=== PATIENT | male | born 1965 | race Caucasian/White ===

== ENCOUNTER 2024-09-15 13:40 | Inpatient (IN) | payer OTHER, SELFPAY ==
[2024-09-15] VITALS (14 sets, daily range): BP systolic 115–149; BP diastolic 66–84; BMI 26.4
--- NOTE | 2024-09-15 10:47 | ED.GENMED ---
History of Present Illness
<Marion Curry CONDUIT MECHANIC - Last Filed: 09/15/24 17:34>
General
Chief Complaint: Back Pain
Source: patient and spouse
Exam Limitations: none
Time Seen by Provider: 09/15/24 10:08
Nursing documentation reviewed up to this point in time: agreed with
History of Present Illness
History of Present Illness:
59-year-old male with history of RLE DVT and PE, has IVC filter 7 years ago, developed low back pain 6 days ago, 4 days ago the back pain was a little worse but the main symptom became significant burning in both inner thigh areas, went to urgent
care and told it was a pinched nerve given Toradol and Flexeril which has not helped at all. At rest he has no pain, as soon as he bears weight he gets severe 'searing 'pains in the thighs and has to walk with a shuffle due to the pain.
Denies loss of bowel or bladder control. Denies weakness in the legs. Took Advil 400 mg 30 minutes ago and thinks it helped a little.
No recollection of overuse or injury
He did start walking in a new area with hills and was walking 3 to 4 miles but it has been a week since he has done any walking.
Denies fever/chills, n/v/d/c. Denies CP, SOB.
Past History
<Marion Curry CONDUIT MECHANIC - Last Filed: 09/15/24 17:34>
Past History
ED Past Medical History: Other (DVT, PE, IVC filter)
ED Past Surgical History: Tonsilectomy and Other (IVC filter)
Social History
Tobacco: Non-smoker
Alcohol: Occasional
Drug: None
Personal:
Living: with family
Employment: Employed
Review of Systems
<Marion Curry CONDUIT MECHANIC - Last Filed: 09/15/24 17:34>
Review of Systems
Allergies reviewed?: Yes
All Other Systems: ROS reviewed and negative except as documented in HPI and ROS
Constitutional: Denies fever, fatigue or chills
Respiratory: Denies trouble breathing
Cardiac: Denies chest pain
ABD/GI: Denies abdominal pain, nausea, vomiting, diarrhea or anorexia
: Denies dysuria, frequency, incontinence or difficulty voiding
Musculoskeletal: Reports back pain (low back pain has improved, now more burning pain in thighs) and other ('searing pains' both thighs anterior and medially much worse with weight bearing); Denies neck pain
Skin: Reports other (Legs look 'more red and mottled' per and .)
Neurological: Denies weakness or numbness
Phy Exam
<Marion Curry CONDUIT MECHANIC - Last Filed: 09/15/24 17:34>
Physical Exam
Physical Exam:
GENERAL: No acute distress. A&Ox3.
CONSTITUTIONAL: Afebrile.
EYES: clear, conjunctivae normal
ENMT: moist mucus membranes
RESPIRATORY: Regular respirations, nonlabored, lungs clear.
CARDIOVASCULAR: Regular rate and rhythm, no murmurs, no rubs. Normal femoral pulses, difficult to palpate pedal pulses, Doppler used for easily audible bilateral pedal and PT pulses.
GI: Soft, nontender, normal BS
MUSCULOSKELETAL: No edema. Well perfused.
SKIN: Warm, dry, pink. LE's are slightly mottled and reddish purple.
PSYCH: Normal mood and affect. Well kept, interactive and appropriate
NEUROLOGIC: Awake, alert and oriented. No focal neurological deficits. Equal patellar reflexes. Strength 5/5 throughout. Sensation to touch equal LEs. SLR with some difficulty to 45 degrees only due to pain (points to medial aspect of thighs).
Course
<Marion Curry, CONDUIT MECHANIC - Last Filed: 09/15/24 17:34>
Orders/Labs/Results
Orders:
Orders
09/15/24 11:00
CPK Isoenzyme Urgent
CRP [C-Reactive Protein] Urgent
Complete Blood Count/With Diff Urgent
Comprehensive Metabolic Panel Urgent
Sed Rate [Erythrocyte Sed Rate] Urgent
TSH Urgent
Comment: ADD ON
09/15/24 12:44
NEUROLOGY CONSULT Urgent
Consulting Provider: Arthur Greenberg
Was physician already notified: Yes
Reason for consult: low back pain with searing pains both thighs
09/15/24 12:59
Admit/Transfer Patient As Directed
Co-Sign Provider:
Level of Care: Inpatient admission
Assign to:: Telemetry
Physician / Group: Ja Coleman
Diagnosis: Severe lower extremity and back pain
Reason for Telemetry: Other
Other Reason for Telemetry: History of DVT
Date to Stop Telemetry: 09/17/24
Time to Stop Telemetry: 11:00
Reason for Hospitalization: Severe lower back and lower extremity pain
Expected length of stay greater than two midnights?: Yes
ELOS- Estimated Length of Stay in days: 3
I certify the patient meets the requirements for IP care: Yes
09/15/24 13:00
Code Status As Directed
Resuscitation Status: Full Code
09/15/24 13:08
PRN Pain Medication Management As Directed
May give lesser potent ordered pain med per pt: Yes
preference::
Protocol:: Medication orders for pain may be administered in a
manner that supports deferring to patient preference
when the pt is:
- Requesting an ordered lesser potent pain medication.
Least to most potent pain medications are defined
as: acetaminophen < NSAID < tramadol < opioids
(morphine, oxycodone, hydromorphone).
- Requesting a lesser dose of the same medication IF
ORDERED.
- Requesting a less intrusive route of administration
if both routes are prescribed by the provider (PO <
IV).
09/15/24 13:11
US Legs, Bilateral [US Periph Venous LOWER Ext Ned] Urgent
Comment:
Reason For Exam: Leg pain with hx DVT/ PE
09/17/24 11:00
DC Protocol for Telemetry ONCE
Abnormal Lab Results
09/15/24
11:00
WBC 14.4 H 10^3/uL
(4.8-10.8)
RBC 3.87 L 10^6/uL
(4.70-6.10)
Hgb 12.4 L g/dL
(13.0-18.0)
Hct 36.6 L %
(39.0-52.0)
MCV 94.6 H fL
(80.0-94.0)
MCH 32.0 H pg
(27.0-31.0)
Abs Immat Gran (auto) 0.1 H 10^3/uL
(0-0.05)
Absolute Neuts (auto) 12.1 H 10^3/uL
(1.4-6.5)
Absolute Lymphs (auto) 0.7 L 10^3/uL
(1.2-3.4)
Absolute Monos (auto) 1.3 H 10^3/uL
(0.1-0.6)
Immature Gran % 0.8 H %
(0-0.5)
Neutrophils % 84.6 H %
(42.2-75.2)
Lymphocytes % 5.0 L %
(20.5-51.1)
ESR 26 H mm/hour
(0-20)
Sodium 132 L mmol/L
(135-145)
Chloride 95 L mmol/L
(98-107)
Glucose 134 H mg/dl
(70-99)
Total Creatine Kinase 32 L U/L
(55-170)
C-Reactive Protein > 270.00 H mg/L
(0.0-10.00)
09/15/24 11:00
09/15/24 11:00
Vital Signs
Initial and Last Documented VS:
Initial Vital Signs
Temp Pulse Resp BP Pulse Ox
99.0 F 117 16 118/84 98
09/15/24 09:19 09/15/24 09:19 09/15/24 09:19 09/15/24 09:19 09/15/24 09:19
Last Documented Vital Signs
Temp Pulse Resp BP Pulse Ox
99.0 F 85 14 140/75 99
09/15/24 09:19 09/15/24 17:00 09/15/24 17:00 09/15/24 17:00 09/15/24 17:00
Installation Coordinator consulted with Physician
Installation Coordinator consulted with physician?: Yes
Name of Physician Consulted: Dr. Pinto
<Charlie Pinto MD - Last Filed: 09/15/24 16:01>
Orders/Labs/Results
Orders:
Orders
09/15/24 11:00
CPK Isoenzyme Urgent
CRP [C-Reactive Protein] Urgent
Complete Blood Count/With Diff Urgent
Comprehensive Metabolic Panel Urgent
Sed Rate [Erythrocyte Sed Rate] Urgent
TSH Urgent
Comment: ADD ON
09/15/24 12:44
NEUROLOGY CONSULT Urgent
Consulting Provider: Arthur Greenberg
Was physician already notified: Yes
Reason for consult: low back pain with searing pains both thighs
09/15/24 12:59
Admit/Transfer Patient As Directed
Co-Sign Provider:
Level of Care: Inpatient admission
Assign to:: Telemetry
Physician / Group: Ja Coleman
Diagnosis: Severe lower extremity and back pain
Reason for Telemetry: Other
Other Reason for Telemetry: History of DVT
Date to Stop Telemetry: 09/17/24
Time to Stop Telemetry: 11:00
Reason for Hospitalization: Severe lower back and lower extremity pain
Expected length of stay greater than two midnights?: Yes
ELOS- Estimated Length of Stay in days: 3
I certify the patient meets the requirements for IP care: Yes
09/15/24 13:00
Code Status As Directed
Resuscitation Status: Full Code
09/15/24 13:08
PRN Pain Medication Management As Directed
May give lesser potent ordered pain med per pt: Yes
preference::
Protocol:: Medication orders for pain may be administered in a
manner that supports deferring to patient preference
when the pt is:
- Requesting an ordered lesser potent pain medication.
Least to most potent pain medications are defined
as: acetaminophen < NSAID < tramadol < opioids
(morphine, oxycodone, hydromorphone).
- Requesting a lesser dose of the same medication IF
ORDERED.
- Requesting a less intrusive route of administration
if both routes are prescribed by the provider (PO <
IV).
09/15/24 13:11
US Legs, Bilateral [US Periph Venous LOWER Ext Ned] Urgent
Comment:
Reason For Exam: Leg pain with hx DVT/ PE
09/17/24 11:00
DC Protocol for Telemetry ONCE
Abnormal Lab Results
09/15/24
11:00
WBC 14.4 H 10^3/uL
(4.8-10.8)
RBC 3.87 L 10^6/uL
(4.70-6.10)
Hgb 12.4 L g/dL
(13.0-18.0)
Hct 36.6 L %
(39.0-52.0)
MCV 94.6 H fL
(80.0-94.0)
MCH 32.0 H pg
(27.0-31.0)
Abs Immat Gran (auto) 0.1 H 10^3/uL
(0-0.05)
Absolute Neuts (auto) 12.1 H 10^3/uL
(1.4-6.5)
Absolute Lymphs (auto) 0.7 L 10^3/uL
(1.2-3.4)
Absolute Monos (auto) 1.3 H 10^3/uL
(0.1-0.6)
Immature Gran % 0.8 H %
(0-0.5)
Neutrophils % 84.6 H %
(42.2-75.2)
Lymphocytes % 5.0 L %
(20.5-51.1)
ESR 26 H mm/hour
(0-20)
Sodium 132 L mmol/L
(135-145)
Chloride 95 L mmol/L
(98-107)
Glucose 134 H mg/dl
(70-99)
Total Creatine Kinase 32 L U/L
(55-170)
C-Reactive Protein > 270.00 H mg/L
(0.0-10.00)
09/15/24 11:00
09/15/24 11:00
Vital Signs
Initial and Last Documented VS:
Initial Vital Signs
Temp Pulse Resp BP Pulse Ox
99.0 F 117 16 118/84 98
09/15/24 09:19 09/15/24 09:19 09/15/24 09:19 09/15/24 09:19 09/15/24 09:19
Last Documented Vital Signs
Temp Pulse Resp BP Pulse Ox
99.0 F 85 14 140/75 99
09/15/24 09:19 09/15/24 17:00 09/15/24 17:00 09/15/24 17:00 09/15/24 17:00
<Marion Curry CONDUIT MECHANIC - Last Filed: 09/15/24 17:34>
MDM/Problems Addressed
Differential Diagnosis Includes:
nerve impingement, sciatica, rhabdomyolysis, discitis, cauda equina
MDM/Problems Addressed:
59-year-old male with history of RLE DVT and PE, has IVC filter 7 years ago, developed low back pain 6 days ago, 4 days ago the back pain was a little worse but the main symptom became significant burning in both inner thigh areas, went to urgent
care and told it was a pinched nerve given Toradol and Flexeril which has not helped at all. At rest he has no pain, as soon as he bears weight he gets severe 'searing 'pains in the thighs and has to walk with a shuffle due to the pain.
Denies loss of bowel or bladder control. Denies weakness in the legs. Took Advil 400 mg 30 minutes ago and thinks it helped a little.
No recollection of overuse or injury
He did start walking in a new area with hills and was walking 3 to 4 miles but it has been a week since he has done any walking.
Denies fever/chills, n/v/d/c. Denies CP, SOB.
Afebrile, NAD
CBC /wbc 14.4 w shift
CMP: No clinically significant abnormality
Sed rate 26 not significant
12:30 p.m.
CRP elevated at 270.[address] Dr[address] Pinto who agrees with admission
Hospitalist notified of admission, Neurology consult in.
Pt is Full Code
<Marion Curry CONDUIT MECHANIC - Last Filed: 09/15/24 17:34>
*Critical Care Note
Total Time (30-74mins, 75-104mins- exclusive of procedures): Not Applicable
ED Attending Note
<Marion Curry CONDUIT MECHANIC - Last Filed: 09/15/24 17:34>
-
Portions of this chart may have been created with voice recognition software.� Occasional wrong word or��sound alike� substitutions may have occurred due to the inherent limitations of voice recognition software.
<Charlie Pinto MD - Last Filed: 09/15/24 16:01>
ED Attending Note
Patient seen and examined by attending physician: Yes
I performed the substantive portion of visit, reviewed & personally made and approve the management plan that is documented in note by myself or JOE.: Yes
ED Attending Note:
I have seen and evaluated the patient with a [id number] encounter. I have spoken to the [CONDUIT MECHANIC] and involved in the medical history, the physical exam, medical decision making.
Evaluation and management service: agree unless noted differently below.
Results interpretation: agree unless noted differently below.
59-year-old man with history of prior DVT/PE presenting to the emergency department back pain. Patient states that 4 days ago he developed low back pain that spread to both his inner thighs. He is unable to explain the pain but denies any numbness
or tingling. He did go to an urgent care and they gave him Flexeril which did not really help. He states that since then the pain has worsened. He is still having some mild back pain. He does note some mild saddle anesthesia. No urinary
incontinence or retention. No spinal injections. No history of IV drug use.
GENERAL: in no acute distress
HEENT: normocephalic, extraocular movements intact, moist oral mucosa
NECK: normal inspection
RESPIRATORY: no respiratory distress, clear to auscultation bilaterally
CARDIOVASCULAR: regular rate and rhythm
ABDOMEN/: soft, non-distended, non-tender to palpation, no rebound or guarding
NEUROLOGIC: alert and oriented x 3, cranial nerves II-XII intact, right upper extremity strength 5/5, left upper extremity strength 5/5, right lower extremity strength 4/5, left lower extremity strength 4/5, normal sensation to light touch, normal
[id number] and [id number], gait not tested formally
SKIN: warm
59-year-old man presenting to the emergency department with back pain that radiates to both his inner thighs with mild saddle anesthesia. Vitals are unremarkable and exam does does have some weakness but states that this secondary to pain. No
sensory deficits. Unclear etiology of patient's pain. He does have elevated CRP as well as CBC. He does not have any risk factors for osteomyelitis or discitis. Considered aortic pathology though patient with strong distal pulses. Could be
component of spinal cord stenosis. There is no true weakness which is reassuring. Patient would benefit from admission for MRI given the nature of patient's pain and findings. Discussed with hospitalist who excepted patient to their service. He
is a full code.
Discharge Plan
Departure
Patient Disposition: Admit
Date of Disposition: 09/15/24
Time of Disposition: 12:38
Admit to: Med/Surg
Presentation/result/management discussed w/ accepting MD/DO: Hospitalist
Condition: Fair
Discharge Problem:
Bilateral leg pain, Bilateral thigh pain
Interventions
Interventions:
*Risk Screen - Suicide Last Done: 09/15/24 09:19
*General Assessment Last Done: 09/15/24 11:20
*Neglect/Abuse Screening Last Done: 09/15/24 09:19
*ED- Fall Risk Assessment Last Done: 09/15/24 16:40
*ED COVID-19 Vaccine History Last Done: 09/15/24 11:20
ED-Musculoskeletal Assessment Last Done: 09/15/24 13:00
[2024-09-15 11:22] LABS: % Basophils 0.2 % (0-2); % Eosinophils 0.6 % (0-6); % Immature Granulocytes 0.8 % (0-0.5); % Monocytes 8.8 % (1.7-9.3); % Neutrophils 84.6 % (42.2-75.2); Absolute Eosinophils 0.1 10^3/uL (0-0.7); Absolute Immature Granulocytes 0.1 10^3/uL (0-0.05); Absolute Lymphocytes 0.7 10^3/uL (1.2-3.4); Absolute Monocytes 1.3 10^3/uL (0.1-0.6); Absolute Neutrophils 12.1 10^3/uL (1.4-6.5); Hematocrit 36.6 % (39.0-52.0); Hemoglobin 12.4 g/dL (13.0-18.0); Mean Corp Hgb Conc. 33.9 g/dL (33.0-37.0); Mean Corpuscular Volume 94.6 fL (80.0-94.0); Mean Platelet Volume 10.4 fL (7.4-10.4); Nucleated Red Blood Cells % 0 % (-); Platelet Count 221 10^3/uL (130-400); Red Blood Cell Count 3.87 10^6/uL (4.70-6.10); Red Cell Dist. Width 12.8 % (11.5-14.5); White Blood Cell Count 14.4 10^3/uL (4.8-10.8)
[2024-09-15 11:31] LABS: ALT (SGPT) 15 U/L (0-50); AST (SGOT) 22 U/L (17-59); Alkaline Phosphatase 80 U/L (38-126); Blood Urea Nitrogen 19 mg/dl (9-20); Calcium 9.4 mg/dl (8.4-10.2); Carbon Dioxide 26 mmol/L (22-30); Chloride 95 mmol/L (98-107); Estimated Creatinine Clearance 75 ml/min; Glucose 134 mg/dl (70-99); Potassium 4.6 mmol/L (3.5-5.1); Sodium 132 mmol/L (135-145); Total Bilirubin 1.2 mg/dl (0.2-1.3); Total Protein 6.6 g/dl (6.3-8.2); eGFR > 60.00
[2024-09-15 11:39] LABS: Erythrocyte Sed Rate 26 mm/hour (0-20)
[2024-09-15 11:55] LABS: Total CK 32 U/L (55-170)
[2024-09-15 12:19] LABS: C-Reactive Protein > 270.00 mg/L (0.0-10.00)
[2024-09-15 14:54] LABS: Hematocrit 34.2 % (39.0-52.0); Hemoglobin 11.5 g/dL (13.0-18.0); Mean Corp Hgb Conc. 33.6 g/dL (33.0-37.0); Mean Corpuscular Hgb 31.9 pg (27.0-31.0); Mean Corpuscular Volume 94.7 fL (80.0-94.0); Mean Platelet Volume 10.2 fL (7.4-10.4); Platelet Count 222 10^3/uL (130-400); Red Blood Cell Count 3.61 10^6/uL (4.70-6.10); Red Cell Dist. Width 12.8 % (11.5-14.5); White Blood Cell Count 13.3 10^3/uL (4.8-10.8)
--- NOTE | 2024-09-15 15:03 | CON.VAS ---
Addendum entered and electronically signed by Eliel Cristobal III, MD 09/15/24 18:48:
This patient was seen and examined in collaboration with VALENTÍN Cox. I agree with the history and physical exam as well as the assessment and plan. I have the following additions:
Prior VTE and 2015
IVC filter placed at that time and never removed
Patient reports that he was not treated with systemic anticoagulation at all for venous thromboembolism
Has had approximately 1 week of symptoms in the lower extremities that has progressed.
Discoloration
Inability to bear weight today
Leg heaviness and swelling
Venous duplex demonstrates extensive bilateral lower extremity DVT
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
On physical exam he is well-appearing
Nonlabored breathing
Lower extremities are warm
Bilateral edema and purple discoloration
Thigh and calf compartments are soft
Palpable pedal pulses
My recommendation is for catheter directed pharmacologic thrombolysis. Technical aspects of this procedure were discussed with him in detail. The benefits and rationale for this approach were discussed with him in detail. Operative risks were
discussed with him in detail including but not limited to life-threatening bleeding, vascular access injury, pulmonary embolism, inability to successfully clear thrombus, need for additional procedures. We also discussed that ideally he should have
the IVC filter removed at some point but the goal for today is to reestablish patency of his IVC, bilateral iliac venous system and bilateral lower extremity deep veins.
Denies recent surgery
Denies recent stroke
No known cancer
No bleeding abnormalities
No history of upper or lower GI bleeding
He expressed a clear understanding of our conversation and agrees to proceed with initiation of thrombolysis as detailed above
Signed:
Eliel Cristobal III, MD
[facility]
[phone] (ritk)
Original Note:
Medical History
-
History of Present Illness:
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 Patient presents to the ER today with complaints of low back pain, bilateral inner thigh burning, bilateral lower extremity
swelling and inability to ambulate due to pain in the legs. Back pain began 6 days ago and worsened about 4 days ago with involvement of the inner thigh 'burning'. Patient presents today due to inability to ambulate because of the pain. Denies
recent injury and states he has increased the miles he walks per day recently but has not exercised in the past week due to the pain. Denies anticoagulation medications. Only other history is a tonsillectomy. Denies history of clotting disorder,
blood disorders or family history. Denies any recent surgeries.
Past Medical History
Past Medical History: Other (DVT, PE 2014 with IVC filter)
Past Surgical History: Other (IVC filter)
Social History
Tobacco: Non-Smoker
Alcohol: Occasional
Drug: None
Personal:
Living: With Family
Employment: Employed
Family History
Family History: Reviewed & Not Pertinent
Allergies / Home Medications
Allergy/AdvReac Type Severity Reaction Status Date / Time
No Known Allergies Allergy Verified 09/15/24 09:23
�Medication �Instructions �Recorded �Confirmed �Type
acetaminophen 500 mg tablet 1,000 mg PO Q4HPRN PRN mild pain 09/15/24 09/15/24 History
cyclobenzaprine 10 mg tablet 10 mg PO TID 09/15/24 09/15/24 History
ketorolac 60 mg/2 mL intramuscular 60 mg IM ONCE 09/15/24 09/15/24 History
solution
Review of Systems
-
History Source: Patient
All other systems: Negative unless noted
Constitutional: Reports No Symptoms
EENT: Reports No Symptoms
Respiratory: Reports No Symptoms
Cardiac: Reports No Symptoms
Vascular: Denies Leg Pain / Claudication
Musculoskeletal: Reports Muscle Pain and Edema
Skin: Reports Other (Slightly reddened in the thighs)
Physical Exam
Vital Signs
Temp Pulse Resp BP Pulse Ox
99.0 F 117 16 115/77 100
09/15/24 09:19 09/15/24 09:19 09/15/24 09:19 09/15/24 14:46 09/15/24 14:47
Lab Results
09/15/24 14:46
09/15/24 11:00
Physical Exam
General: No Apparent Distress
HEENT: Normocephalic and Atraumatic
Respiratory: Non Labored Respirations
Cardiac: Negative JVD
GI: Soft and Non Tender
Musculoskeletal: No Clubbing, No Cyanosis and Edema (Bilateral lower extremities)
Skin: Warm and Other (Mild erythema bilateral lower extremities)
Neuro: Awake, Alert and Oriented
Psych: Calm
Pulses: Bilateral Dorsalis Pedis: +2
Assessment / Plan
-
59-year-old male with bilateral lower extremity DVTs by ultrasound
Past medical history of right lower extremity DVT and bilateral PEs with IVC filter placed
Plan:
-Heparin drip
-CT venogram
-Will discuss plan with patient once scan complete
Data Reviewed
-
Ultrasound: Discussed with Patient
Labs: Labs Reviewed by me
[2024-09-15 15:05] LABS: APTT 29.3 Sec (23.4-35.0)
[2024-09-15] MEDS: HEPARIN 6900 UNITS IV (15:12)
[2024-09-15] MEDS: HEPARIN 25000 UNITS/250 ML IV (15:13)
[2024-09-15 16:25] LABS: TSH 2.58 uIU/ml (0.47-4.68)
--- NOTE | 2024-09-15 16:32 | HPS.HSE ---
Addendum entered and electronically signed by Ja Coleman MD 09/15/24 20:45:
Attending Addendum-
I performed a history and physical exam of the patient and discussed his management with the resident. I reviewed the resident's note and agree with the documented findings and plan of care CC/HPI- came to ED s/p swelling LE, back pain, and
inability to walk x 1 week. h/o prior extensive DVT/PE. Patient Denies CP SOB hemoptysis fevers chills. Full 12 point ROS reviewed and negative except as documented Exam- vitals reviewed in EMR GEN-NAd heart RRR lungs clear abd soft LE b/l thigh
swelling redness warmth distal pulses intact Neuro AAO x 3
Plan:
# B/L Extensive DVT
- stat b/l US ordered-Extensive lower extremity deep vein thrombus with acute clot extending from the bilateral iliac veins through the posterior tibial veins. Additionally there is thrombus within the bilateral great saphenous veins.
- h/o DVT/PE with IVC filter placement in 2014
- c/s vasc surg
- check CT venogram
- DC neuro c/s ordered by ED
- start heparin gtt
- likely for thrombolysis today
- NPO
- will need eventual genetic workup and hemeonc f/u as OP
# H/O ETOH abuse
- start MSAS
# Leukocytosis
- likely reactive cont to trend
# Hyponatremia
- hypovolemic
- start IVF
- repeat BMP in am
Code- Full
DVT-heparin gtt
ACP
Patient consented to discuss, was alone, time spent explanation of advance directives, changes in health status, patient�s health care wishes if the patient becomes unable to make health decisions, goals of care, code status, and prognosis- 16
minutes
Time spent coordinating care, review of plan of care with resident, personally reviewed previous records in EMR, med rec, labs, radiology, d/w nursing, consultants total time documented is exclusive of any additional time listed that was spent in
advance care planning discussion -�80 minutes
Original Note:
Family Physician
-
Family Physician: * NONE
Chief Complaint
-
Bilateral lower extremity redness, swelling and back pain
History of Present Illness
59-year-old male with past medical history of DVT, PE with IVC placement 7 years ago, gout presented to the ED with bilateral lower extremity swelling and back pain. His started with back pain last Wednesday after sleeping on an uncomfortable
mattress. It progressively got worse and he later developed bilateral upper thigh pain which he described as burning. He is went to an urgent care on Wednesday and they stated it was likely a pinched nerve and provided Toradol and cyclobenzaprine
which did not help. At rest, he has a 3/10 level of pain, but when he moves it can be 10/10. Of note, pt had previous DVT -> PE with right heart strain requiring thrombolysis and IVC placement in 2014. He stated he stopped taking Eliquis shortly
after leaving the hospital. Further genetic work up was not done. Prior to DVT he twisted his ankle playing soccer, went to bed, and the next morning did not feel right and went to hospital with subsequent findings. He has not family hx of clots.
Today, he denies numbness and tingling in his upper thighs and describes the pain more so as tight and swollen. The pain is so severe that it impedes his walking. Laying down and Tylenol help. He denies numbness, tinging, urinary or bowel
incontinence, chest pain, heart palpitations, shortness of breath, weakness in upper or lower extremities outside of movement disturbed by pain blurry vision, lightheadedness, recent fever or muscle aches. He denies any recent trauma or strenuous
activity prior to back pain starting.
In ED, satting 100% on room air, tachy HR, BP stable, Na 132, WBC 14.4. He was provided Tylenol and neurology was consulted. We added an urgent bilateral lower extremity US, EKG, BMP and troponins.
Medical History
Past Medical History
Past Medical History: Reports Other
Additional Past Medical History:
PE
DVT
IVC placement
Gout
Past Surgical History: Reports Tonsilectomy
Social History
Tobacco: Non-smoker
Alcohol: Daily (3 beers daily)
Drug: None
Personal: Partner
Employment: Employed
Family History
Family History: Other (Father and brother Parkinson's)
Allergies / Home Medications
Allergies reflects when Allergies were last updated in [facility].
Home Medications with original date entered in [facility]
Allergy/Medication List:
Allergies
Allergy/AdvReac Type Severity Reaction Status Date / Time
No Known Allergies Allergy Verified 09/15/24 09:23
Home Medications
acetaminophen 500 mg tablet 1,000 mg PO Q4HPRN PRN mild pain 09/15/24
cyclobenzaprine 10 mg tablet 10 mg PO TID 09/15/24
ketorolac 60 mg/2 mL intramuscular solution 60 mg IM ONCE 09/15/24
Review of Systems
-
History Source: Patient
Constitutional: Reports No Symptoms
EENT: Reports No Symptoms
Respiratory: Reports No Symptoms
Cardiac: Reports No Symptoms
Abdomen/GI: Reports No Symptoms
: Reports No Symptoms
Musculoskeletal: Reports Other (Bilateral thigh swelling, warmth, redness, pain/burning sensation with movement. Lower back pain)
Skin: Reports Other (Increased redness and swelling of upper thighs )
Neurological: Reports No Symptoms
Psych: Reports Calm
Physical Exam
Vital Signs
Vital Signs
Temp Pulse Resp BP Pulse Ox
99.0 F 117 16 115/77 100
09/15/24 09:19 09/15/24 09:19 09/15/24 09:19 09/15/24 14:46 09/15/24 14:47
Physical Exam
General: Comfortable
HEENT: NormoCephalic
Respiratory: Clear
Cardiac: S1/S2 and Regular Rhythm
GI: Soft, Non Distended, Normal Bowel Sounds and Tender (Slight tenderness with deep palpation in RLQ and LLQ close to inguinal canal)
Musculoskeletal: Other (Bilateral lower extremity swelling, thighs bilaterally swollen, warm, tender to palpation of inner thighs, peripheral pulses intact)
Skin: Other (mottled bilateral lower extremity rash, thighs bilaterally erythematous, warm)
Neuro: AO x 3, No Motor Deficits, Nonfocal/grossly intact, Cranial Nerves Intact, No Sensory Deficits and DTR's Intact & Symmetrical; No Slurred Speech, Facial Droop or Tremors
Psych: Calm
Laboratory Results
-
09/15/24 14:46
09/15/24 11:00
Laboratory Results
APTT 29.3 Sec (23.4-35.0) 09/15/24 14:46
Total Bilirubin 1.2 mg/dl (0.2-1.3) 09/15/24 11:00
AST 22 U/L (17-59) 09/15/24 11:00
ALT 15 U/L (0-50) 09/15/24 11:00
Alkaline Phosphatase 80 U/L (38-126) 09/15/24 11:00
Impression/Plan
-
IMPRESSION:
59-year-old male with past medical history of PE and DVT requiring thrombolysis and IVC placement due to right heart strain 7 years ago presents to ED with bilateral lower extremity erythema swelling and back pain. Bilateral lower extremity
ultrasound revealed extensive bilateral DVT extending from the iliacs to posterior tibial veins. Patient started on heparin drip and vascular consulted.
PLAN:
Extensive bilateral lower extremity DVT
-Admit to tele
-Heparin ggt
-NPO
-Vascular consult
-EKG, troponin and BMP pending
-Vascular checks
-t/c hemeonc consult as original dvt 7 years ago appears relatively unprovoked
-Tylenol for pain
Leukocytosis
-No complaints consistent with infx
-Likely reactive
-Monitor CBC
Hyponatremia likely hypovolemic
-Maintenence fluids as NPO
-Monitor
Alcohol use disorder
-3 beers per day average
-MSAS protocol
Macrocytic anemia
-Likely secondary to chronic alcohol use
-B12 and folate pending
DVT on heparin ggt
NPO
Full code
[2024-09-15 17:33] LABS: NT-proBNP 78.7 pg/ml; Troponin I < 0.012 ng/ml
[2024-09-15] MEDS: DILAUDID 0.25 MG IV (17:56)
--- NOTE | 2024-09-15 18:48 | W.SUR.PREOP ---
Pre-Operative Surgical Note
-
I have examined this patient prior to the performance of the scheduled procedure.
The patient's condition is unchanged from the time of the current History and
Physical and the patient is able to undergo the scheduled procedure.
--- NOTE | 2024-09-15 20:29 | OR.RPT ---
Operative Report
Operative Report
Date of Operation: 09/15/2024
Pre Op Diagnosis:
1. Thrombosed inferior vena cava
2. Bilateral iliofemoral DVT
3. Extensive bilateral lower extremity DVT
4. Presence of IVC filter
Post Op Diagnosis:
1. Thrombosed inferior vena cava
2. Bilateral iliofemoral DVT
3. Extensive bilateral lower extremity DVT
4. Presence of IVC filter
Procedure:
1. Initiation of pharmacologic venous thrombolysis, BILATERAL lower extremity
2. Venography BILATERAL lower extremity
3. Venography, inferior vena cava
4. Introduce wire/catheter to inferior vena cava from BILATERAL popliteal vein access
5. Ultrasound-guided percutaneous access popliteal veins BILATERAL
Surgeon: Eliel Cristobal III, MD
Anesthesia: Sedation/local
Complications: None
Estimated Blood Loss: 10 cc
History and Indications for Procedure: 59-year-old male with previous history of venous thromboembolism in 2014. Had an IVC filter placed at that time. Reports not being treated with systemic anticoagulation. Presents today with 1 week of
progressive lower extremity symptoms and cross-sectional imaging demonstrating thrombosed inferior vena cava and extensive bilateral iliofemoral and infrainguinal DVTs. He was taken to the operating room for initiation of pharmacologic thrombolysis
Procedure in Detail: George German was correctly identified and placed supine on the operating table. After adequate induction of anesthesia he was positioned prone. The popliteal fossa bilaterally were prepped and draped in the usual sterile
fashion. Preoperative antibiotics were administered. A timeout procedure was performed with the nursing and anesthesia staff confirming the patient's identity as well as the nature and laterality of the procedure.
Under ultrasound guidance I identified the right popliteal vein. There was thrombus within the vein and it was not compressible. Under ultrasound guidance I obtained access to the vein with a micropuncture needle. I then upsized to a 6 Gambian
sheath over a Bentson wire. Using a glide catheter and Glidewire I easily navigated through the popliteal vein, femoral vein, common femoral vein, iliac veins and IVC. I was able to navigate through the IVC filter with the wire and catheter.
Venography was performed on the inferior vena cava cephalad to the filter which demonstrated the vena cava was patent. A Bentson wire was placed. A 5 Gambian 50 cm Cragg Harrison lysis catheter was then advanced easily over the Bentson wire. The
distal radiopaque tip was positioned just cephalad to the filter hook. 10 mg of tPA was bolused into the Cragg Harrison catheter.
I then proceeded with a similar approach on the left. Under ultrasound guidance I identified the left popliteal vein. There was thrombus within the vein and it was not compressible. Under ultrasound guidance I obtained access to the left
popliteal vein with a micropuncture needle and then upsized to a 6 Gambian sheath over a Bentson wire. Using a glide catheter and Glidewire I easily navigated through the popliteal vein, femoral vein, common femoral vein, iliac veins and IVC. I was
able to navigate through the IVC filter through a different strut on the opposite side of the filter compared to the right. The catheter and wire were advanced into the inferior vena cava and additional venography was performed demonstrating a
patent inferior vena cava cephalad to the filter hook. A Bentson wire was then placed. A 5 Gambian 50 cm Cragg Harrison lysis catheter was then advanced easily over the Bentson wire. Once again the distal radiopaque tip was positioned just
cephalad to the filter hook. 10 mg of tPA was also bolused into this Cragg Harrison catheter.
Subsequent bilateral venography was performed through the Cragg Harrison catheters. The catheters were in good position. Significant thrombus burden was identified bilaterally. Each lysis catheter was connected to its own infusion pump and the
tPA drip was started through each catheter at 0.5 mg/hour. The sideport of each 6 Gambian sheath was connected to a heparin drip and run at 500 units/hour per side. The lysis catheter and sideport of each sheath were labeled clearly and
individually. The lysis catheter on each side was secured in place at the sheath exit site using Steri-Strips. Each 6 Gambian sheath was secured in place at the skin with a nylon suture. Tegaderm dressings were liberally applied over the sheaths
and catheters bilaterally.
The patient tolerated the procedure well and was taken to the ICU in stable condition.
Signed:
Eliel Cristobal III, MD
[facility] Vascular Surgery
[phone] (kynn)
--- NOTE | 2024-09-15 20:30 | W.IMMPOSTOP ---
Surgical Immed Post Op Note
-
Primary Surgeon: Levar
Pre-op Diagnosis: Extensive IVC, bilateral LE DVT
Post-op Diagnosis: Extensive IVC, bilateral LE DVT
Procedure Performed: Initiation of thrombolysis
Anesthesia Type: Sedation
Specimen / Cultures: None
Estimated Blood Loss: 10 cc
Complications: None
Operative Findings: Successful initiation of lysis via bilateral pop vein access
PJF3
[2024-09-15] MEDS: CATHFLO/ACTIVASE 16 MG INF CATH ×2 (20:48→20:50)
[2024-09-15] MEDS: CATHFLO/ACTIVASE 16 ML INF CATH ×2 (20:48→20:50)
[2024-09-15 20:56] LABS: Glucose - Point of Care 83 mg/dl (70-99)
[2024-09-15] MEDS: DILAUDID 0.5 MG IV (20:58)
[2024-09-15] MEDS: ZOFRAN 4 MG IV (20:59)
[2024-09-15 21:25] LABS: Magnesium 2.2 mg/dl (1.6-2.3); Phosphorus 3.7 mg/dl (2.5-4.5)
[2024-09-15] MEDS: NSS 1000 INF CATH ×2 (21:48)
[2024-09-15] MEDS: OFIRMEV 100 IV (21:49)
[2024-09-15] MEDS: TYLENOL PO (21:49)
[2024-09-15] MEDS: FLEXERIL PO (21:50)
[2024-09-15 22:23] LABS: % Basophils 0.1 % (0-2); % Eosinophils 0.8 % (0-6); % Immature Granulocytes 0.8 % (0-0.5); % Lymphocytes 3.8 % (20.5-51.1); % Monocytes 6.4 % (1.7-9.3); % Neutrophils 88.1 % (42.2-75.2); Absolute Eosinophils 0.1 10^3/uL (0-0.7); Absolute Immature Granulocytes 0.1 10^3/uL (0-0.05); Absolute Lymphocytes 0.6 10^3/uL (1.2-3.4); Absolute Neutrophils 13.7 10^3/uL (1.4-6.5); Hematocrit 32.7 % (39.0-52.0); Hemoglobin 11.3 g/dL (13.0-18.0); Mean Corp Hgb Conc. 34.6 g/dL (33.0-37.0); Mean Corpuscular Hgb 32.1 pg (27.0-31.0); Mean Corpuscular Volume 92.9 fL (80.0-94.0); Mean Platelet Volume 10.4 fL (7.4-10.4); Nucleated Red Blood Cells % 0 % (-); Platelet Count 218 10^3/uL (130-400); Red Blood Cell Count 3.52 10^6/uL (4.70-6.10); Red Cell Dist. Width 12.7 % (11.5-14.5); White Blood Cell Count 15.5 10^3/uL (4.8-10.8)
[2024-09-15 22:31] LABS: Urine Albumin 2+ (Neg - Trace); Urine Bilirubin Negative (Negative); Urine Character Clear (Clear); Urine Color Yellow; Urine Glucose Negative (Negative); Urine Ketone 1+ (Negative); Urine Leukocyte Negative (Negative); Urine Nitrite Negative (Negative); Urine Occult Blood Negative (Negative); Urine Urobilinogen Negative (Neg - 1+); Urine pH 6.5 (5.0-9.0)
[2024-09-15 22:33] LABS: INR 1.19; PT 15.4 Sec (11.4-14.6)
[2024-09-15 22:34] LABS: APTT 36.7 Sec (23.4-35.0)
[2024-09-15 22:35] LABS: Lactic Acid 1.1 mmol/L (0.7-2.0)
[2024-09-15 22:37] LABS: Urine Bacteria Few (Negative); Urine Red Blood Cell 0-2 /HPF (0-2); Urine Squamous Cell 0-2 /LPF (Few); Urine White Cell 0-2 /HPF (0-5)
[2024-09-15 22:40] LABS: ALT (SGPT) 19 U/L (0-50); AST (SGOT) 36 U/L (17-59); Albumin 3.3 g/dl (3.5-5.0); Alkaline Phosphatase 82 U/L (38-126); Blood Urea Nitrogen 18 mg/dl (9-20); Calcium 8.7 mg/dl (8.4-10.2); Carbon Dioxide 23 mmol/L (22-30); Chloride 98 mmol/L (98-107); Estimated Creatinine Clearance 83 ml/min; Glucose 131 mg/dl (70-99); Potassium 4.4 mmol/L (3.5-5.1); Sodium 130 mmol/L (135-145); Total Bilirubin 2.1 mg/dl (0.2-1.3); eGFR > 60.00
[2024-09-16] VITALS (35 sets, daily range): BP systolic 116–179; BP diastolic 68–100; BMI 26.5
--- NOTE | 2024-09-16 01:56 | W.PN.UPDATE ---
Update Note
Progress Note Update
~ 2100, per RN, patient up from vascular OR, has a fever of 102. TT Dr. Cristobal. Ordered Ofirmev and ordered fever workup, cultures sent. 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
[2024-09-16] MEDS: TYLENOL PO ×3 (02:34→09:56)
--- NOTE | 2024-09-16 02:35 | PTCARENOTE ---
Rec. pt. from [facility] OR.
Handoff completed w. OR nurse/FORENSIC COMPUTER EXAMINER.
Bilat POP sites w. venous sheaths in place. Heparin/TPA/Saline KVO infusing through both sheaths.
Hemodynamically stable. RA maintaining own airway.
All questions answered.
[2024-09-16] MEDS: NSS 1000 IV ×2 (03:21→12:37)
[2024-09-16] MEDS: CATHFLO/ACTIVASE 16 ML INF CATH ×2 (03:22→03:44)
[2024-09-16] MEDS: CATHFLO/ACTIVASE 16 MG INF CATH ×2 (03:22→03:44)
[2024-09-16] MEDS: OFIRMEV IV ×2 (03:47→15:09)
[2024-09-16 05:27] LABS: Hematocrit 32.5 % (39.0-52.0); Hemoglobin 11.1 g/dL (13.0-18.0); Mean Corp Hgb Conc. 34.2 g/dL (33.0-37.0); Mean Corpuscular Hgb 31.5 pg (27.0-31.0); Mean Corpuscular Volume 92.3 fL (80.0-94.0); Mean Platelet Volume 10.2 fL (7.4-10.4); Platelet Count 200 10^3/uL (130-400); Red Blood Cell Count 3.52 10^6/uL (4.70-6.10); Red Cell Dist. Width 12.8 % (11.5-14.5); White Blood Cell Count 13.3 10^3/uL (4.8-10.8)
[2024-09-16 05:49] LABS: Blood Urea Nitrogen 18 mg/dl (9-20); Calcium 8.6 mg/dl (8.4-10.2); Carbon Dioxide 25 mmol/L (22-30); Chloride 101 mmol/L (98-107); Estimated Creatinine Clearance 83 ml/min; Glucose 117 mg/dl (70-99); Potassium 4.1 mmol/L (3.5-5.1); Sodium 133 mmol/L (135-145); eGFR > 60.00
--- NOTE | 2024-09-16 06:42 | W.PN.VS ---
Addendum entered and electronically signed by Eliel Cristobal III, MD 09/16/24 08:21:
Patient seen and examined with Carmita LAURA
I agree with the H/P/A/P
No events overnight
Comfortable in bed this AM
S.O. at bedside
Legs soft bilat. Edema bilat
Strong dopp signals bilat feet
Return to OR for lysis check and additional endo intervention.
PJF3
Original Note:
Today's Communication / Plan
-
See below.
Assessment/Plan
-
Assessment: 59-year-old male POD #1 Initiation of thrombolysis catheter for extensive bilateral DVT and extensive IVC clot
Plan:
Return to the OR today for venogram and possible lysis catheter removal
N.p.o.
Subjective Data
-
Date of Service: September 16, 2024
Patient seen and examined at bedside, offers no complaints. Denies fullness or tenderness at bilateral behind the knee puncture sites. Denies any neurological changes.
Objective Data
-
Vital Signs
Temp Pulse Resp BP Pulse Ox
102.3 F H 82 9 129/75 100
09/15/24 23:02 09/16/24 06:00 09/16/24 06:00 09/16/24 06:00 09/16/24 06:00
Intake and Output
09/14/24 09/15/24 09/16/24
06:59 06:59 06:59
Intake Total 764 / 764
Output Total 1290 / 1290
Balance -526 / -526
Intake:
Oral fluids 0 / 0
IV fluids (Total) 764 / 764
Nss 1,000 ml @ 100 mls/hr IV . 500 / 500
Q10H KAVIN Rx#:[id number]
Nss 1,000 ml @ 23 mls/hr INF 132 / 132
CATH .Q24H KAVIN Rx#:[id number]
Nss 1,000 ml @ 23 mls/hr INF 132 / 132
CATH .Q24H KAVIN Rx#:[id number]
IV piggybacks 0 / 0
Output:
Urine, Cristobal 1290 / 1290
Lab Results
09/16/24 05:06
Calcium 8.6 mg/dl (8.4-10.2) 09/16/24 05:06
Phosphorus 3.7 mg/dl (2.5-4.5) 09/15/24 11:00
Magnesium 2.2 mg/dl (1.6-2.3) 09/15/24 11:00
Total Bilirubin 2.1 mg/dl (0.2-1.3) H D 09/15/24 21:51
AST 36 U/L (17-59) 09/15/24 21:51
ALT 19 U/L (0-50) 09/15/24 21:51
Alkaline Phosphatase 82 U/L (38-126) 09/15/24 21:51
Total Protein 6.0 g/dl (6.3-8.2) L 09/15/24 21:51
Albumin 3.3 g/dl (3.5-5.0) L 09/15/24 21:51
Physical Exam
-
No apparent distress, resting in bed comfortably
No tachycardia
No dyspnea on room air
Abdomen flat, nontender, nondistended
Bilateral behind knee puncture site CDI, no evidence of hematoma or edema, all surrounding compartments soft
--- NOTE | 2024-09-16 07:38 | W.PN.HOSP.TC ---
Today's Communication/Plan
-
see A/P
Assessment / Plan
Assessment / Plan
59-year-old male with past medical history of DVT, PE with IVC placement 7 years ago, gout presented to the ED with bilateral lower extremity swelling and back pain. His started with back pain after sleeping on an uncomfortable mattress. It
progressively got worse and he later developed bilateral upper thigh pain which he described as burning. He went to an urgent care on Wednesday and they stated it was likely a pinched nerve and provided Toradol and cyclobenzaprine which did not help.
Of note, pt had previous DVT -> PE with right heart strain requiring thrombolysis and IVC placement in 2014. He stated he stopped taking Eliquis shortly after leaving the hospital. Further genetic work up was not done. Prior to DVT he twisted his
ankle playing soccer, went to bed, and the next morning did not feel right and went to hospital with subsequent findings. He has not family hx of clots.
A/P:
# B/L Extensive DVT
# h/o DVT/PE with IVC filter placement in 2014
stat b/l US noted extensive lower extremity deep vein thrombus with acute clot extending from the bilateral iliac veins through the posterior tibial veins. Additionally there is thrombus within the bilateral great saphenous veins.
s/p emergent thrombolysis 09/15
plan for return to the OR today 09/16 for venogram and possible lysis catheter removal
Cont heparin gtt per vascular
will need eventual genetic workup and hemeonc f/u as OP
# H/O ETOH abuse
MSAS protocol
# SIRS with Leukocytosis and fever
likely reactive
follow blood culture
Ancef periop, can start empiric ceftriaxone until blood cultures resulted
# hypovolemic Hyponatremia
started IVF
follow BMP
Code- Full
DVT-heparin gtt
DW vascular team
DW RN
DW at bedside
total time spent 51 min
Anticipated Discharge: > 48 hours
Subjective/Interval History
-
Date of Service: September 16, 2024
Objective Data
-
Labs:
Laboratory Results
09/15/24 09/16/24 09/16/24
21:51 05:06 07:35
WBC 15.5 H 13.3 H
Hgb 11.3 L 11.1 L Pending
Hct 32.7 L 32.5 L Pending
Plt Count 218 200 Pending
PT 15.4 H Pending
INR 1.19
APTT 36.7 H
Sodium 130 L 133 L
Potassium 4.4 4.1
Chloride 98 101
Carbon Dioxide 23 25
BUN 18 18
Creatinine 1.0 1.0
Glucose 131 H 117 H
Calcium 8.7 8.6
Total Bilirubin 2.1 H D
AST 36
ALT 19
Alkaline Phosphatase 82
09/16/24 09/16/24 09/16/24
07:35 07:35 07:35
WBC
Hgb
Hct
Plt Count
PT Pending
INR Pending Pending
APTT Pending Pending
Sodium
Potassium
Chloride
Carbon Dioxide
BUN
Creatinine
Glucose
Calcium
Total Bilirubin
AST
ALT
Alkaline Phosphatase
09/16/24 09/16/24
12:45 18:45
WBC
Hgb Pending Pending
Hct Pending Pending
Plt Count Pending Pending
PT Pending Pending
INR Pending Pending
APTT Pending Pending
Sodium
Potassium
Chloride
Carbon Dioxide
BUN
Creatinine
Glucose
Calcium
Total Bilirubin
AST
ALT
Alkaline Phosphatase
Vital Signs:
Vital Signs
Temp Pulse Resp BP Pulse Ox
38.4 C H 82 9 129/75 100
09/16/24 07:20 09/16/24 06:00 09/16/24 06:00 09/16/24 06:00 09/16/24 06:00
I&O
09/15/24 09/16/24 09/17/24
06:59 06:59 06:59
Intake Total 764 / 764
Output Total 1290 / 1290
Balance -526 / -526
Review of Systems
-
All other systems: Reviewed and negative
Physical Exam
-
General: Well Developed, Well Nourished, No Apparent Distress, Comfortable and Conversant; Negative Respiratory Distress
HEENT: Normocephalic, Atraumatic, Nose Appears Normal and Ears Appear Normal; Negative Oxygen
Respiratory: Clear to Auscultation and Non Labored Respirations; Negative Accessory Resp Muscle Use
Cardiac: Regular Rhythm and S1/S2
GI: Soft, Nontender, Nondistended and Normal Bowel Sounds
Skin: Warm and Dry
Neuro: Awake, Alert and Oriented
Psych: Calm and Intact Judgement/Insight
Data Reviewed
-
CT Scan: Report Reviewed by me
Labs: Labs Reviewed by me
[2024-09-16] MEDS: ANCEF 5 IV (07:46)
[2024-09-16 07:54] LABS: Hematocrit 31.9 % (39.0-52.0); Hemoglobin 11.1 g/dL (13.0-18.0); Platelet Count 192 10^3/uL (130-400)
[2024-09-16 08:07] LABS: INR 1.29; PT 16.3 Sec (11.4-14.6)
[2024-09-16 08:08] LABS: APTT 51.2 Sec (23.4-35.0); INR 1.31; PT 16.6 Sec (11.4-14.6)
[2024-09-16 08:09] LABS: APTT 44.5 Sec (23.4-35.0)
[2024-09-16 08:10] LABS: Fibrinogen 400 MG/DL (199-459)
[2024-09-16 08:11] LABS: Fibrinogen 439 MG/DL (199-459)
--- NOTE | 2024-09-16 08:23 | CON.INTV ---
Consultation
Consultation Request
Date/Time Consultation Requested: 09/15/2024 - 2041
Date/Time Consultation Performed: 09/16/2024 - 815
Requesting Provider: Dr. Coleman
Performing Provider: Dr. Grayson
Reason for Consultation: B/l iliofemoral thrombi + DVT s/p CDT
Medical History
-
Chief Complaint: Back + leg pain
History of Present Illness:
59-year-old male non-smoker with a past medical history of PE/DVT with history of IVC filter + tPA administration (September 2014), and left foot fracture who presents with worsening back and bilateral leg pain. His back pain started last Wednesday
after sleeping on an uncomfortable mattress and this pain progressively worsened leading to his upper thighs. Pain in his thighs described as burning. He went to an urgent care this past Wednesday and they said it was a pinched nerve and gave him
Toradol and Flexeril which did not help. Regarding his previous history of PE DVT, he was on Eliquis and stopped this shortly after leaving the hospital. He has no family history of clots, per the patient. Imaging here on 09/15/2024 with a duplex
ultrasound showed extensive lower extremity DVT with acute clot extending from the bilateral iliac veins through the posterior tibial veins as well as thrombus within the bilateral great saphenous veins. CTA abdomen/pelvis on 09/15/2024 showed
extensive venous thrombosis involving the common femoral veins, external iliac veins and common iliac veins bilaterally extending into the IVC at the level of the superior tip of the IVC filter. Vascular surgery was consulted and given his
bilateral lower extremity edema with purple discoloration, catheter directed thrombolysis was recommended. He was brought to the OR on the evening of 09/15 and underwent venous thrombosis via bilateral popliteal vein access. Patient then
transferred to the ICU for further care and terminal gauger services consulted for additional management/recommendations.
When I saw the patient, he was resting in bed in no acute distress. He does have hematuria seen in the Cristobal catheter bag. His significant other, Leon, was at bedside and all questions were answered. He is currently on normal saline 0.9% at 80 cc
an hour. Heart rate 63, BP 173/93 and saturating 100% on 2 L/min. Patient feels much better than he did when he first was admitted. Currently denies chest pain, SOB, nausea, vomiting, fevers or chills.
PMHx: History of PE with RV strain s/p IVC filter + tPA (09/2014), history of RLE popliteal DVT (2014), left foot fracture (2011), gout
PSHx: T&A, IVC filter placement (09/2014)
Past Medical History
Past Medical History: Other (Above as per HPI)
Past Surgical History: Other (Above as per HPI)
Social History
Tobacco: Non-smoker
Alcohol: Occasional (Social)
Drug: None
Personal: Partner (Melquiades)
Living: Other (partner)
Employment: Employed
Family History
Family History: Other (Father: Parkinson disease)
Allergies / Home Medications
Allergies
Allergy/AdvReac Type Severity Reaction Status Date / Time
No Known Allergies Allergy Verified 09/15/24 09:23
Home Medications
�Medication �Instructions �Recorded �Confirmed �Last Taken �Type
acetaminophen 500 mg tablet 1,000 mg PO Q4HPRN PRN mild pain 09/15/24 09/15/24 09/15/24 10:00 History
cyclobenzaprine 10 mg tablet 10 mg PO TID 09/15/24 09/15/24 09/15/24 08:00 History
ketorolac 60 mg/2 mL intramuscular 60 mg IM ONCE 09/15/24 09/15/24 09/12/24 History
solution
Review of Systems
-
History Source: Patient
All other systems: Negative unless noted
Vitals / Labs / Diagnostic Testing
Vital Signs
Temp Pulse Resp BP Pulse Ox
101.2 F H 82 9 129/75 100
09/16/24 07:20 09/16/24 06:00 09/16/24 06:00 09/16/24 06:00 09/16/24 06:00
Lab Data
09/16/24 05:06
Laboratory Results
09/15/24 09/15/24 09/16/24
14:46 21:51 07:35
PT 15.4 H 16.6 H
INR 1.19
APTT 29.3 36.7 H
09/16/24 09/16/24 09/16/24
07:35 07:35 07:35
PT 16.3 H
INR 1.31 1.29
APTT 44.5 H 51.2 H
Diagnostic Testing:
Physical Exam
-
HEENT: Normocephalic and Anicteric
Cardiovascular: S1/S2 and Peripheral Edema (+1 bilateral lower extremity edema)
Respiratory: Clear, Wheeze (negative), Rales (negative), Rhonchi (negative) and Non-Labored Respirations
GI: Soft, Non Distended, Non Tender and Normal Bowel Sounds
Neurology: AO x 3 and Tremors (negative)
Skin: Dry and Other (Cool left foot, warm right foot)
General: Respiratory Distress (negative), Comfortable, Fever (negative) and Chills (negative)
Assessment
-
Assessment: 59-year-old male non-smoker with a past medical history of PE/DVT with history of IVC filter + tPA administration (September 2014), and left foot fracture who presents with worsening back and bilateral leg pain. His back pain started last
Wednesday after sleeping on an uncomfortable mattress and this pain progressively worsened leading to his upper thighs. Pain in his thighs described as burning. He went to an urgent care this past Wednesday and they said it was a pinched nerve and
gave him Toradol and Flexeril which did not help. Regarding his previous history of PE DVT, he was on Eliquis and stopped this shortly after leaving the hospital. He has no family history of clots, per the patient. Imaging here on 09/15/2024 with
a duplex ultrasound showed extensive lower extremity DVT with acute clot extending from the bilateral iliac veins through the posterior tibial veins as well as thrombus within the bilateral great saphenous veins. CTA abdomen/pelvis on 09/15/2024
showed extensive venous thrombosis involving the common femoral veins, external iliac veins and common iliac veins bilaterally extending into the IVC at the level of the superior tip of the IVC filter. Vascular surgery was consulted and given his
bilateral lower extremity edema with purple discoloration, catheter directed thrombolysis was recommended. He was brought to the OR on the evening of 09/15 and underwent venous thrombosis via bilateral popliteal vein access. Patient then
transferred to the ICU for further care and terminal gauger services consulted for additional management/recommendations.
Chronic conditions [employer]: History of PE with RV strain s/p IVC filter + tPA (09/2014), history of RLE popliteal DVT (2014), left foot fracture (2011), gout
Impression:
#Bilateral iliofemoral DVT with extensive bilateral lower extremity DVT and IVC filter thrombosis s/p catheter directed thrombolysis (initiated on evening of 09/15/2024)
#Hematuria in the setting of Cristobal on heparin drip
#Leukocytosis likely reactive due to above
#Acute anemia
#Hyponatremia likely related to reduced PO intake (further supported given his urine has +1 ketones)
#Hyperbilirubinemia
#History of alcohol abuse
Plan:
- Patient was transferred to the ICU after starting catheter directed thrombolysis on 09/15 for extensive bilateral DVTs with clot also seen at the superior tip of his IVC filter seen on CT venogram from 09/15/2024
- Patient going back to the OR this morning for termination of thrombolysis and afterwards will come back for resumption of heparin drip
- Heparin drip should be for the DVT/PE protocol
- Would recommend outpatient hematology evaluation for hypercoagulable workup as this is his second VTE event and may need to be on lifelong anticoagulation going forward
- Eventual transition from heparin drip to NOAC, preferably Eliquis
- Recommend case management consult to assess the affordability of Eliquis
- Patient does have hematuria likely related to Cristobal catheter in the setting of recent thrombosis and now with heparin drip
- Continue to monitor hematuria; currently no clots seen; if clots develop or if bleeding increases/H&H started to drop then we will consult urology for CBI
- Vascular operative note and correspondence personally reviewed
- Pain control
- Continue to trend WBC and monitor for fevers
- Follow-up blood cultures collected on admission
- Hospitalist started empiric ceftriaxone
- If leukocytosis continues to improve and he remains afebrile for the next 24-48 hours, then consider stopping antibiotics at that time
- Maintain SpO2 >90-94% while weaning down supplemental O2 as tolerated
- Aspiration precautions
- Monitor for alcohol withdrawal --> currently no withdrawal Sx
- Maintain MAP>65
- Replete electrolytes with K>4, Mg>2
- Maintain euglycemia with goal BG 140-180
- Trend H/H and transfuse if needed to keep Hb>7g/dL; keep plt>50k (given post-operative status)
- prn nebulized bronchodilators - not currently bronchospastic
- Incentive spirometer encouraged 10x per hour for at least 4 hrs a day
- DVT ppx: on heparin gtt
Critical care statement: A total of 38 minutes of critical care time was provided for this patient today. This includes management of unstable vital signs, evaluation of the patient at bedside, reviewing the patient's pertinent medical records
including radiographs, microbiology, laboratory evaluations, and discussion with primary team, consultants, pharmacy, nutrition, physical therapy, case management, charge nurse, critical care nursing, and respiratory therapy.
Data:
Peripheral Bilateral Lower Extremity Duplex US 09/15/2024: Extensive lower extremity deep vein thrombus with acute clot extending from the bilateral iliac veins through the posterior tibial veins. Additionally there is thrombus within the bilateral
great saphenous veins.
CTA abdomen/pelvis with/without contrast 09/15/2024: Extensive lower extremity deep vein thrombus with acute clot extending from the bilateral iliac veins through the posterior tibial veins. Additionally there is thrombus within the bilateral great
saphenous veins.
CXR 09/15/2024: No evidence of active cardiopulmonary disease.
--- NOTE | 2024-09-16 08:43 | PTCARENOTE ---
Received from family consultant RN. BL popliteal TPA sheaths in place with heparin infusing at 500units/hr. Handoff completed with family consultant RN. Neurologically intact, + pulses in the PT and DP. L foot pulses intact via doppler. Vascular team rounding .
Noted a fever of 101.2, additional ABx started by hospitalist. 99% on RA. Pt states some mild abd discomfort this morning. Cristobal catheter in place draining clear yellow urine. IV sites intact.
[2024-09-16] MEDS: FLEXERIL PO ×3 (09:56→23:03)
[2024-09-16] MEDS: NSS IV (10:02)
--- NOTE | 2024-09-16 10:33 | OR.RPT ---
Operative Report
Operative Report
Date of Operation: 09/16/2024
Pre Op Diagnosis:
1. IVC thrombosis, status post initiation of pharmacologic thrombolysis
2. Extensive bilateral iliofemoral and infrainguinal DVT status post initiation of pharmacologic thrombolysis
3. Presence of IVC filter
Post Op Diagnosis:
1. IVC thrombosis, status post initiation of pharmacologic thrombolysis
2. Extensive bilateral iliofemoral and infrainguinal DVT status post initiation of pharmacologic thrombolysis
3. Presence of IVC filter
Procedure:
1. Venography, inferior vena cava
2. Venography bilateral iliac veins and lower extremities
3. Mechanical thrombolysis of bilateral popliteal veins, femoral veins, common femoral veins, iliac veins using AngioJet Zelante catheter
4. Mechanical thrombolysis of inferior vena cava using AngioJet Zelante catheter
5. Termination of thrombolysis
Surgeon: Eliel Cristobal III, MD
Anesthesia: Sedation/local
Complications: None
Estimated Blood Loss: 500 cc
History and Indications for Procedure: 59-year-old male with extensive thrombosis of inferior vena cava, bilateral iliofemoral venous system and bilateral infrainguinal veins. He underwent initiation of thrombolysis yesterday evening and was taken
back to the operating room today for venogram/lysis check
Procedure in Detail: Mr. German was correctly identified and placed supine on the operating table. After adequate induction of anesthesia he was positioned prone. Preoperative antibiotics were administered. The sheaths and catheters in the
popliteal fossa bilaterally were prepped and draped in the usual sterile fashion. A timeout procedure was performed with the nursing and anesthesia staff confirming the patient's identity as well as nature and laterality of the procedure.
Storq wires were placed through the lysis catheters bilaterally and positioned in the inferior vena cava cephalad to the filter hook. Bilateral venograms were performed through the 6 Tunisian sheaths. The femoral veins, common femoral veins and
iliac veins were now patent. Residual thrombus was identified throughout which was nonocclusive. Sluggish flow was identified through the iliac veins bilaterally to the level of the filter. Residual thrombus was identified in the filter but there
was flow through the IVC albeit sluggish.
Systemic heparin was administered. I upsized both sheaths to 8 Tunisian. We performed mechanical thrombolysis bilaterally involving the popliteal veins, femoral veins, common femoral veins, iliac veins and IVC through the filter using the AngioJet
Zelante catheter. This was done 1 side at a time. Particular attention was paid to the thrombus within the IVC filter. Subsequent venography demonstrated an excellent technical result with good flow through the lower extremity veins and iliac
veins bilaterally. The vena cava was patent with flow through the filter. A small amount of residual thrombus was left in the apex of the filter. I did make an attempt to aspirate this with an 8 Tunisian guide cath advanced to the level of the
filter which made some improvement but did not completely clear the thrombus. The overall result was a significant improvement compared to pretreatment. Satisfied with this result we then concluded the procedure. All wires and catheters were
removed. The popliteal vein sheaths were removed bilaterally direct manual pressure was held over the puncture sites until hemostasis was achieved. Sterile dressings were applied. The patient was flipped supine and his legs were wrapped
bilaterally from the toes to the proximal thighs with Ravi wraps.
He tolerated the procedure well was taken to the recovery room in good condition. An appropriate weight-based heparin drip was started in the operating room.
Signed:
Eliel Cristobal III, MD
[facility]
[phone] ([facility])
[2024-09-16] MEDS: HEPARIN 25000 UNITS/250 ML IV (10:34)
--- NOTE | 2024-09-16 10:52 | PTCARENOTE ---
Pt received from vascular OR. Sites checked with RN and anesthesia, all dressings intact. Vascular checks intact. Currently on heparin gtt at 1500 units/hr. Cristobal catheter draining dark, blood tinged urine, MD aware. IV sites intact. Pt and family
updated with plan of care.
[2024-09-16] MEDS: ROCEPHIN 1000 MG IV (10:56)
[2024-09-16] MEDS: STERILE WATER FOR INJECTION 10 ML IV (10:56)
[2024-09-16] MEDS: OFIRMEV 100 IV (10:56)
[2024-09-16] MEDS: APRESOLINE 5 MG IV (12:37)
[2024-09-16] MEDS: NORVASC 2.5 MG PO (12:39)
[2024-09-16] MEDS: TYLENOL 650 MG PO ×3 (14:14→21:21)
[2024-09-16 15:44] LABS: Hematocrit 29.9 % (39.0-52.0); Hemoglobin 10.5 g/dL (13.0-18.0); Mean Corp Hgb Conc. 35.1 g/dL (33.0-37.0); Mean Corpuscular Hgb 32.6 pg (27.0-31.0); Mean Corpuscular Volume 92.9 fL (80.0-94.0); Mean Platelet Volume 10.3 fL (7.4-10.4); Platelet Count 177 10^3/uL (130-400); Red Blood Cell Count 3.22 10^6/uL (4.70-6.10); Red Cell Dist. Width 12.7 % (11.5-14.5); White Blood Cell Count 10.9 10^3/uL (4.8-10.8)
[2024-09-16 15:58] LABS: APTT 124.5 Sec (23.4-35.0)
--- NOTE | 2024-09-16 16:18 | PTCARENOTE ---
Pt reassessed. Not complaining of any pain or discomfort. + pulses via doppler. Cristobal in place draining punch colored urine, this appears to be analytics lead than his urine initially was upon arrival from the OR. PTT assessed, heparin gtt decreased to
1300 units/hr. Call clark within reach. Pt makes needs known.
--- NOTE | 2024-09-16 20:24 | PTCARENOTE ---
Assumed care of pt. approx 1900.
Heparin gtt infusing per orders.
Site checks verified w. offgoing Day team RN.
Pt. updated on plan of care and restrictions.
No questions offered at this time.
[2024-09-16 22:53] LABS: APTT 66.4 Sec (23.4-35.0)
[2024-09-17] VITALS (10 sets, daily range): BP systolic 115–139; BP diastolic 51–87; BMI 26.5
--- NOTE | 2024-09-17 02:03 | PTCARENOTE ---
No change in pt. assessment.
Site checks benign.
[2024-09-17] MEDS: TYLENOL PO ×4 (02:04→18:17)
[2024-09-17 04:49] LABS: Hematocrit 29.1 % (39.0-52.0); Mean Corp Hgb Conc. 34.4 g/dL (33.0-37.0); Mean Corpuscular Hgb 31.3 pg (27.0-31.0); Mean Corpuscular Volume 91.2 fL (80.0-94.0); Mean Platelet Volume 10.3 fL (7.4-10.4); Platelet Count 208 10^3/uL (130-400); Red Blood Cell Count 3.19 10^6/uL (4.70-6.10); Red Cell Dist. Width 12.4 % (11.5-14.5); White Blood Cell Count 12.6 10^3/uL (4.8-10.8)
[2024-09-17 04:59] LABS: APTT 57.4 Sec (23.4-35.0)
[2024-09-17 05:15] LABS: Blood Urea Nitrogen 24 mg/dl (9-20); Calcium 8.4 mg/dl (8.4-10.2); Carbon Dioxide 22 mmol/L (22-30); Chloride 105 mmol/L (98-107); Estimated Creatinine Clearance 75 ml/min; Glucose 135 mg/dl (70-99); Potassium 4.5 mmol/L (3.5-5.1); Sodium 136 mmol/L (135-145); eGFR > 60.00
--- NOTE | 2024-09-17 08:01 | W.PN.HOSP.TC ---
Today's Communication/Plan
-
see A/P
Assessment / Plan
Assessment / Plan
59-year-old male with past medical history of DVT, PE with IVC placement 7 years ago, gout presented to the ED with bilateral lower extremity swelling and back pain. His started with back pain after sleeping on an uncomfortable mattress. It
progressively got worse and he later developed bilateral upper thigh pain which he described as burning. He went to an urgent care on Wednesday and they stated it was likely a pinched nerve and provided Toradol and cyclobenzaprine which did not help.
Of note, pt had previous DVT -> PE with right heart strain requiring thrombolysis and IVC placement in 2014. He stated he stopped taking Eliquis shortly after leaving the hospital. Further genetic work up was not done. Prior to DVT he twisted his
ankle playing soccer, went to bed, and the next morning did not feel right and went to hospital with subsequent findings. He has not family hx of clots.
A/P:
# B/L Extensive DVT
# h/o DVT/PE with IVC filter placement in 2014
stat b/l US noted extensive lower extremity deep vein thrombus with acute clot extending from the bilateral iliac veins through the posterior tibial veins. Additionally there is thrombus within the bilateral great saphenous veins.
s/p emergent thrombolysis 09/15
s/p Venography and Extensive thrombolysis and lysis catheter removal 09/16
Cont heparin gtt per vascular
will need eventual hypercoagulable workup with heme as OP. Informed pt
# H/O ETOH abuse
MSAS protocol
# SIRS with Leukocytosis and fever , likely reactive
blood cultures so far negative
periop Ancef escalated to empiric ceftriaxone
# hypovolemic Hyponatremia, resolved
Code- Full
DVT-heparin gtt
DW RN
Anticipated Discharge: > 48 hours
Subjective/Interval History
-
Date of Service: September 17, 2024
Objective Data
-
Labs:
Laboratory Results
03/15/25 03/16/25 03/16/25
22:31 04:32 12:00
WBC 12.6 H
Hgb 10.0 L
Hct 29.1 L
Plt Count 208
APTT 66.4 H 57.4 H Pending
Sodium 136
Potassium 4.5
Chloride 105
Carbon Dioxide 22
BUN 24 H
Creatinine 1.1
Glucose 135 H
Calcium 8.4
Vital Signs:
Vital Signs
Temp Pulse Resp BP Pulse Ox
37.2 C 65 8 115/70 98
09/17/24 04:00 09/17/24 06:00 09/17/24 06:00 09/17/24 06:00 09/17/24 06:00
I&O
09/16/24 09/17/24 09/18/24
06:59 06:59 06:59
Intake Total 764 / 764 2564 / 2564
Output Total 1290 / 1290 3050 / 3050
Balance -526 / -526 -486 / -486
Review of Systems
-
History Source: Patient
All other systems: Reviewed and negative
Physical Exam
-
General: Well Developed, Well Nourished, No Apparent Distress, Comfortable and Conversant; Negative Respiratory Distress
HEENT: Normocephalic, Atraumatic, Nose Appears Normal and Ears Appear Normal; Negative Oxygen
Respiratory: Clear to Auscultation and Non Labored Respirations; Negative Accessory Resp Muscle Use
Cardiac: Regular Rhythm and S1/S2
GI: Soft, Nontender, Nondistended and Normal Bowel Sounds
Skin: Warm and Dry
Neuro: Awake, Alert and Oriented
Psych: Calm and Intact Judgement/Insight
Data Reviewed
-
CT Scan: Report Reviewed by me
Labs: Labs Reviewed by me
--- NOTE | 2024-09-17 08:17 | W.PN.INTV ---
Today's Communication / Plan
Recommendations
Up OOB as tolerated
Heparin drip with eventual transition to NOAC
Outpatient hematology visit for hypercoagulable workup
Case management consult to assess affordability of NOAC, preferably Eliquis
Monitor hematuria
Maintain MAP >65
Postoperative management as per vascular surgery
Patient is stable for downgrade out of ICU to telemetry. This was confirmed to be appropriate by vascular surgery (Dr. Ramirez). No additional recommendations at this time. Any Commodity Sales Deliverer/Pulmonary service will now sign off. Please reconsult if there
are any additional questions/concerns, or if patient's respiratory status deteriorate
Assessment
-
Assessment: 59-year-old male non-smoker with a past medical history of PE/DVT with history of IVC filter + tPA administration (September 2014), and left foot fracture who presents with worsening back and bilateral leg pain. His back pain started last
Wednesday after sleeping on an uncomfortable mattress and this pain progressively worsened leading to his upper thighs. Pain in his thighs described as burning. He went to an urgent care this past Wednesday and they said it was a pinched nerve and
gave him Toradol and Flexeril which did not help. Regarding his previous history of PE DVT, he was on Eliquis and stopped this shortly after leaving the hospital. He has no family history of clots, per the patient. Imaging here on 09/15/2024 with
a duplex ultrasound showed extensive lower extremity DVT with acute clot extending from the bilateral iliac veins through the posterior tibial veins as well as thrombus within the bilateral great saphenous veins. CTA abdomen/pelvis on 09/15/2024
showed extensive venous thrombosis involving the common femoral veins, external iliac veins and common iliac veins bilaterally extending into the IVC at the level of the superior tip of the IVC filter. Vascular surgery was consulted and given his
bilateral lower extremity edema with purple discoloration, catheter directed thrombolysis was recommended. He was brought to the OR on the evening of 09/15 and underwent venous thrombosis via bilateral popliteal vein access. Patient then
transferred to the ICU for further care and agricultural adviser services consulted for additional management/recommendations.
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
Impression:
#Bilateral iliofemoral DVT with extensive bilateral lower extremity DVT and IVC filter thrombosis s/p catheter directed thrombolysis (initiated on evening of 09/15/2024)
#Hematuria in the setting of Ramirez on heparin drip - ramirez catheter now removed
#Leukocytosis likely reactive due to above
#Acute anemia
#Hyponatremia likely related to reduced PO intake (further supported given his urine has +1 ketones) - Na now normalized
#Hyperbilirubinemia
#History of alcohol abuse
Plan:
- Patient was transferred to the ICU after starting catheter directed thrombolysis on 09/15/2024 for extensive bilateral DVTs with clot also seen at the superior tip of his IVC filter seen on CT venogram from 09/15/2024
- Patient went back to the OR yesterday AM for termination of thrombolysis and afterwards came back for resumption of heparin drip
- Heparin drip should be under the DVT/PE protocol
- Recommend outpatient hematology evaluation for hypercoagulable workup as this is his second VTE event and may need to be on lifelong anticoagulation going forward
- Eventual transition from heparin drip to NOAC, preferably Eliquis
- Recommend case management consult to assess the affordability of Eliquis
- Patient had hematuria likely related to Ramirez catheter in the setting of recent thrombosis and heparin drip
- Continue to monitor hematuria; currently no clots seen; if clots develop or if bleeding increases/H&H starts to significantly decrease then recommend consult to urology for CBI
- Vascular operative note and correspondence personally reviewed
- Pain control
- Continue to trend WBC and monitor for fevers
- Follow-up blood cultures collected on admission (NGTD)
- Hospitalist started empiric ceftriaxone
- If leukocytosis continues to improve and he remains afebrile for the next 24 hours, then consider stopping antibiotics at that time
- Maintain SpO2 >90-94% while weaning down supplemental O2 as tolerated
- Aspiration precautions
- Trend T bili
- Monitor for alcohol withdrawal --> currently no withdrawal Sx
- Maintain MAP>65
- Replete electrolytes with K>4, Mg>2
- Maintain euglycemia with goal BG 140-180
- Trend H/H and transfuse if needed to keep Hb>7g/dL; keep plt>50k (given post-operative status and hematuria)
- prn nebulized bronchodilators - not currently bronchospastic
- Incentive spirometer encouraged 10x per hour for at least 4 hrs a day
- DVT ppx: on heparin gtt
Patient is stable for downgrade out of ICU to telemetry. This was confirmed to be appropriate by vascular surgery (Dr. Ramirez). No additional recommendations at this time. Any Commodity Sales Deliverer/Pulmonary service will now sign off. Thank you for allowing us
to be involved in the care of this patient. Please reconsult if there are any additional questions/concerns, or if patient's respiratory status deteriorates.
Data:
Peripheral Bilateral Lower Extremity Duplex US 09/15/2024: Extensive lower extremity deep vein thrombus with acute clot extending from the bilateral iliac veins through the posterior tibial veins. Additionally there is thrombus within the bilateral
great saphenous veins.
CTA abdomen/pelvis with/without contrast 09/15/2024: Extensive lower extremity deep vein thrombus with acute clot extending from the bilateral iliac veins through the posterior tibial veins. Additionally there is thrombus within the bilateral great
saphenous veins.
CXR 09/15/2024: No evidence of active cardiopulmonary disease.
Total time spent today was 58 minutes for this encounter. Time includes reviewing laboratory test/imaging results, reviewing pertinent medical records, obtaining and reviewing medical history, performing an appropriate exam, ordering medications,
tests and procedures. Time also includes documentation of this encounter, coordinating patient care and communicating with other healthcare professionals. Total time does not include separately billed tests performed on this date of service.
Subjective Dataa
Subjective Data
Date of Service:
Date of Service: September 17, 2024
Chief Complaint: Any Commodity Sales Deliverer Follow Up
Subjective:
Patient seen this morning and he is resting in bed in no acute distress. He feels well today with no lower extremity pain. Remains on heparin drip. Currently on room air saturating 98% with heart rate 83 and BP 109/74. He is very happy that the
Ramirez is out. He denies chest pain, TERRAZAS, nausea, fevers or chills.
Review of Systems
General: Other (Negative unless mentioned above)
Objective Data
Data Reviewed
Vital Signs / I&O / Oxygen:
Vital Signs
Temp Pulse Resp BP Pulse Ox
98.4 F 69 8 125/65 98
09/17/24 08:00 09/17/24 08:49 09/17/24 06:00 09/17/24 08:49 09/17/24 06:00
Intake and Output
09/16/24 09/17/24 09/18/24
06:59 06:59 06:59
Intake Total 764 / 764 2564 / 2662 196 / 196
Output Total 1290 / 1290 3050 / 3110 120 / 120
Balance -526 / -526 -486 / -448 76 / 76
SaO2 98
Physical Exam
General: Respiratory Distress (negative), Comfortable, Chills (negative) and Sweats (negative)
HEENT: Normocephalic and Anicteric
Cardiovascular: S1-S2, Rub (negative) and Peripheral Edema (Trace lower extremity edema bilaterally)
Respiratory: Clear, Wheeze (negative), Crackles (negative), Rhonchi (negative) and Non-Labored Respirations
GI: Soft, Non Distended, Non Tender and Normal Bowel Sounds
Neurology: AO x 3 and Tremors (negative)
Skin: Dry, Cyanosis (negative), Jaundice (negative), Other (Slightly cool distal lower extremities bilaterally) and Other (Bandages on lower extremities bilaterally)
Labs/Micro/Reports
Lab Data
09/17/24 04:32
09/17/24 04:32
Laboratory Results
09/16/24 09/16/24 09/16/24
09:56 12:45 15:37
PT Cancelled
INR Cancelled
APTT Cancelled Cancelled 124.5 H
09/16/24 09/16/24 09/17/24
18:45 22:31 04:32
PT Cancelled
INR Cancelled
APTT Cancelled 66.4 H 57.4 H
Microbiology
09/15/24 21:51 Blood/Venous Blood Culture - Preliminary
No Growth in 24 hours- Final report to follow
09/15/24 21:51 Blood/Venous Blood Culture - Preliminary
No Growth in 24 hours- Final report to follow
[2024-09-17] MEDS: NORVASC 5 MG PO (08:49)
[2024-09-17] MEDS: FLEXERIL PO ×2 (08:50→14:16)
[2024-09-17] MEDS: ROCEPHIN 1000 MG IV (08:50)
[2024-09-17] MEDS: STERILE WATER FOR INJECTION 10 ML IV (08:50)
[2024-09-17] MEDS: TYLENOL 650 MG PO ×2 (08:50→20:51)
--- NOTE | 2024-09-17 09:53 | W.PN.UPDATE ---
Update Note
Progress Note Update
Feels much better today
Legs are much softer
Feels his leg discomfort is much improved vs preop and leg mobility returning
Heparin gtt running @ 1800 units/hr
Thighs/calves bilat softer vs preop
Palp pedal pulses bilat
OK to d/c Cristobal
OOB, ambulate
JAYNE wrap compression from toes to thighs at all times
Elevate legs at all times while in bed
Therapeutic ptt goal with heparin gtt
OK to convert to oral agent
Hematology followup as outpatient
Will need to see me in the office for IVC filter retrieval discussion
[id number]
--- NOTE | 2024-09-17 10:44 | PTCARENOTE ---
Pt received from prior RN. Cath sites assessed, + pulses via doppler, trace swelling to LE's, JAYNE wrap in place. Cristobal removed. Pt tolerating ambulation, walked to the bathroom now sitting up in the chair.
[2024-09-17] MEDS: HEPARIN 25000 UNITS/250 ML IV (13:43)
--- NOTE | 2024-09-17 13:47 | CM ---
CM reviewed chart. Spoke with pt. Explained role and discussed anticipated dcp/options.
Pt does not anticipated any skilled needs at dc. 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
SO Melquiades will be transporting at dc.
[facility] on record- confirmed choice.
CM/SW will continue to follow to ensure a safe and timely dc.
[2024-09-17 14:02] LABS: APTT 62.9 Sec (23.4-35.0)
--- NOTE | 2024-09-17 14:12 | PTCARENOTE ---
PTT reassessed, heparin gtt increased to 2100 units/hr. Pt sitting up in chair watching soccer, offering no complaints.
--- NOTE | 2024-09-17 17:30 | W.PN.ANS.POP ---
Anesthesia Post Operative
- Anesthesia Post Op Note
Vital Signs Stable-See Nursing Note: Yes
Airway Patent: Yes
Adequate Pain Control: Yes
Change in Mental Status: No
Current Postoperative Nausea & Vomiting: No
Anesthesia Complications: No
General Anesthetic Recall: No
Unplanned Admission: No
Post Op Hydration Adequate: Yes
--- NOTE | 2024-09-17 19:24 | PTCARENOTE ---
Report given to [address] RN and oncoming shift. Pt is comfortable with no complaints. Call clark within reach.
--- NOTE | 2024-09-17 20:17 | PTCARENOTE ---
Pt arrived to floor at 1945 from ICU in a wheelchair. Pt walked to bed with assistance. Heparin gtt running at 2100 units/hr. Compression therapy with jad wraps b/l lower extrem in place. Pt oriented to room and call clark within reach. Care ongoing.
[2024-09-17 21:16] LABS: APTT 82.4 Sec (23.4-35.0)
[2024-09-17] MEDS: FLEXERIL 10 MG PO (22:58)
[2024-09-18] MEDS: TYLENOL 650 MG PO (00:03)
[2024-09-18 03:05] VITALS: BP 108/68
[2024-09-18] MEDS: HEPARIN 25000 UNITS/250 ML IV ×2 (03:26→15:13)
[2024-09-18 04:21] LABS: APTT 103.7 Sec (23.4-35.0)
[2024-09-18] MEDS: TYLENOL PO ×5 (04:38→13:56)
[2024-09-18 07:10] VITALS: BP 122/66
[2024-09-18] MEDS: ROCEPHIN 1000 MG IV (08:29)
[2024-09-18] MEDS: NORVASC 5 MG PO (08:29)
[2024-09-18] MEDS: FLEXERIL 10 MG PO (08:29)
[2024-09-18] MEDS: STERILE WATER FOR INJECTION 10 ML IV (08:30)
--- NOTE | 2024-09-18 09:22 | W.PN.HOSP.TC ---
Today's Communication/Plan
-
Transition to Eliquis
Assessment / Plan
Assessment / Plan
59-year-old male with past medical history of DVT, PE with IVC placement 2014, gout presented to the ED with bilateral lower extremity swelling and back pain. His started with back pain after sleeping on an uncomfortable mattress. It progressively
got worse and he later developed bilateral upper thigh pain which he described as burning. He went to an urgent care on Wednesday and they stated it was likely a pinched nerve and provided Toradol and cyclobenzaprine which did not help.
Of note, pt had previous DVT -> PE with right heart strain requiring thrombolysis and IVC placement in 2014. He stated he stopped taking Eliquis shortly after leaving the hospital. Further genetic work up was not done. Prior to DVT he twisted his
ankle playing soccer, went to bed, and the next morning did not feel right and went to hospital with subsequent findings. He has no family hx of clots.
A/P:
B/L Extensive DVT
h/o DVT/PE with IVC filter placement in 2014
-stat b/l US noted extensive lower extremity deep vein thrombus with acute clot extending from the bilateral iliac veins through the posterior tibial veins. Additionally there is thrombus within the bilateral great saphenous veins.
-s/p emergent thrombolysis 09/15
-s/p Venography and Extensive thrombolysis and lysis catheter removal 09/16
-transition to Eliquis today
-will need eventual hypercoagulable workup with heme as OP. Informed pt
H/O ETOH abuse
-MSAS protocol
SIRS with Leukocytosis and fever , likely reactive
-blood cultures so far negative
-periop Ancef escalated to empiric ceftriaxone
Hyperbilirubinemia
-Likely secondary to clot lysis
-Monitor CMP
Hematuria
-Likely secondary to ramirez cath in setting of recent thrombosis and heparin ggt
-Monitor and if cont or sign drop in hg tx urology consult
Hypovolemic Hyponatremia
-resolved
Code- Full
DVT-heparin gtt
DW RN
Anticipated Discharge: Today
Subjective/Interval History
-
Date of Service: September 18, 2024
Objective Data
-
Labs:
Laboratory Results
09/18/24 09/18/24 09/18/24
02:29 03:08 06:00
WBC Pending
Hgb Pending
Hct Pending
Plt Count Pending
APTT Cancelled 103.7 H
Sodium Pending
Potassium Pending
Chloride Pending
Carbon Dioxide Pending
BUN Pending
Creatinine Pending
Glucose Pending
Calcium Pending
Total Bilirubin Pending
AST Pending
ALT Pending
Alkaline Phosphatase Pending
Vital Signs:
Vital Signs
Temp Pulse Resp BP Pulse Ox
98.6 F 74 16 122/66 98
09/18/24 07:10 09/18/24 07:10 09/18/24 07:10 09/18/24 07:10 09/18/24 07:10
I&O
09/17/24 09/18/24 09/19/24
06:59 06:59 06:59
Intake Total 2564 / 2662 649 / 649
Output Total 3050 / 3110 120 / 120
Balance -486 / -448 529 / 529
Review of Systems
-
History Source: Patient
EENT: Reports No Symptoms Reported
Respiratory: Reports No Symptoms
Cardiac: Reports No Symptoms
Abdomen/GI: Reports No Symptoms
Neuro: Reports No Symptoms
Physical Exam
-
General: Well Developed and Comfortable
Respiratory: Clear to Auscultation
Cardiac: Regular Rhythm and S1/S2
GI: Soft, Nontender, Nondistended and Normal Bowel Sounds
Musculoskeletal: No Edema and Other (Peripheral pulses intact )
Skin: Warm and Dry
Neuro: AO x 3
Psych: Calm
--- NOTE | 2024-09-18 09:59 | W.PN.UPDATE ---
Update Note
Progress Note Update
Primary diagnosis:
Extensive bilateral lower extremity DVT
SIRS with leukocytosis and fever
Hypovolemic hyponatremia
Secondary diagnosis:
Alcohol use disorder
Hospital course:
59-year-old male with past medical history of PE, DVT with subsequent with thrombolysis and subsequent IVC placement in 2014 presented to [facility] with bilateral lower extremity redness and swelling. Peripheral lower extremity ultrasound
revealed extensive bilateral DVT. Patient started on heparin drip and vascular was consulted. Patient underwent thrombolysis. Patient was transitioned from heparin to oral anticoagulation.
Today, patient is clinically stable for discharge on oral anticoagulation. He is to stay on Eliquis 10mg BID until 09/21 and then switch to 5mg BID on 09/22. Strongly recommend outpatient hematology follow-up for clotting factor evaluation. Also
recommend follow up with vascular for further discussion of IVC removal.
--- NOTE | 2024-09-18 10:25 | CM ---
Addendum entered by Fatou Cordero 09/18/24 15:32:
coupons provided and patient cost is covered per [place] phone conversation with pharmacist. CM updated physician and vm left for patient with nursing.
Original Note:
Patient seen at bedside possible for discharge home today. Patient for possible eliquis vs xarelto. CM will confirm with physician which medication. CM will continue to follow for discharge planning needs.
Plan; home with family, no VN needs at this time.
[2024-09-18 11:24] VITALS: BP 132/68
[2024-09-18 15:20] VITALS: BP 105/73
[2024-09-18 18:29] VITALS: BP 122/72
[2024-09-18] MEDS: ELIQUIS 10 MG PO (19:08)
--- NOTE | 2024-09-18 19:11 | PTCARENOTE ---
1900 eliquis administered and heparin gtt discontinued per order.
== END 2024-09-18 19:20 | disposition home or self-care (01) | DRG 270 ==
LOC: 2 SOUTH 13:40
PROVIDERS: Internal Medicine; Nurse Practitioner; Nurse Practitioner Family; Registered Nurse; ADMITTING PHYSICIAN Family Medicine; ATTENDING PHYSICIAN Internal Medicine; CONSULT PHYSICIAN Internal Medicine Critical Care Medicine; CONSULT PHYSICIAN Surgery Vascular Surgery; EMERGENCY PHYSICIAN Student in an Organized Health Care Education/Training Program
PROC: 3E04317 Introduction of Other Thrombolytic into Central Vein, Percutaneous Approach (ICD-10-PCS; 2024-09-15)
PROC: 06CF3ZZ Extirpation of Matter from Right External Iliac Vein, Percutaneous Approach (ICD-10-PCS; 2024-09-16)
PROC: 06CD3ZZ Extirpation of Matter from Left Common Iliac Vein, Percutaneous Approach (ICD-10-PCS; 2024-09-16)
PROC: 06CC3ZZ Extirpation of Matter from Right Common Iliac Vein, Percutaneous Approach (ICD-10-PCS; 2024-09-16)
PROC: 06CG3ZZ Extirpation of Matter from Left External Iliac Vein, Percutaneous Approach (ICD-10-PCS; 2024-09-16)
PROC: 06C03ZZ Extirpation of Matter from Inferior Vena Cava, Percutaneous Approach (ICD-10-PCS; 2024-09-16)
DX: T82.868A Thrombosis due to vascular prosthetic devices, implants and grafts, initial encounter (principal); I82.220 Acute embolism and thrombosis of inferior vena cava; E87.1 Hypo-osmolality and hyponatremia; I82.423 Acute embolism and thrombosis of iliac vein, bilateral; I82.443 Acute embolism and thrombosis of tibial vein, bilateral; I82.813 Embolism and thrombosis of superficial veins of lower extremities, bilateral; R65.10 Systemic inflammatory response syndrome (SIRS) of non-infectious origin without acute organ dysfunction; D68.32 Hemorrhagic disorder due to extrinsic circulating anticoagulants; D62 Acute posthemorrhagic anemia; E86.1 Hypovolemia; D72.829 Elevated white blood cell count, unspecified; E80.6 Other disorders of bilirubin metabolism; R31.9 Hematuria, unspecified; T45.515A Adverse effect of anticoagulants, initial encounter; Y83.1 Surgical operation with implant of artificial internal device as the cause of abnormal reaction of the patient, or of later complication, without mention of misadventure at the time of the procedure; Z95.828 Presence of other vascular implants and grafts; Z86.718 Personal history of other venous thrombosis and embolism; Z86.711 Personal history of pulmonary embolism; Z79.01 Long term (current) use of anticoagulants
CPT/HCPCS: 36012; 37187; 37212; 37214; 71045; 74174; 75822; 75825; 76937; 80048; 80053; 81003; 81015; 82550; 82962; 83605; 83735; 83880; 84100; 84443; 84484; 85014; 85018; 85025; 85027; 85049; 85384; 85610; 85652; 85730; 86140; 87040; 93970; 96365; 96366; 96375; 99285; C1757; C1769; C1887; C1894; J2997; Q9967

== ENCOUNTER → 2024-10-02 09:47 | Outpatient (REF) | payer OTHER, SELFPAY | LOC: RAD 09:47 | PROVIDERS: ATTENDING PHYSICIAN Surgery Vascular Surgery | DX: Z95.828 Presence of other vascular implants and grafts (principal) | CPT/HCPCS: 74174; Q9967 ==

== ENCOUNTER → 2024-10-17 13:21 | Outpatient (REF) | payer OTHER, SELFPAY | LOC: RAD 13:21 | PROVIDERS: ATTENDING PHYSICIAN Surgery Vascular Surgery | DX: Z95.828 Presence of other vascular implants and grafts (principal) | CPT/HCPCS: 93970 ==

== ENCOUNTER 2024-10-24 08:18 | Day surgery (SDC) | payer OTHER, SELFPAY ==
[2024-10-16 08:58] VITALS: BMI 25.7
[2024-10-16 09:58] LABS: APTT 29.7 Sec (23.4-35.0); PT 14.6 Sec (11.4-14.6)
[2024-10-16 10:33] LABS: Blood Urea Nitrogen 17 mg/dl (9-20); Calcium 9.3 mg/dl (8.4-10.2); Carbon Dioxide 30 mmol/L (22-30); Chloride 100 mmol/L (98-107); Estimated Creatinine Clearance 102 ml/min; Glucose 99 mg/dl (70-99); Potassium 4.4 mmol/L (3.5-5.1); Sodium 139 mmol/L (135-145); eGFR > 60.00
[2024-10-16 11:18] LABS: % Basophils 0.7 % (0-2); % Immature Granulocytes 0.7 % (0-0.5); % Lymphocytes 23.8 % (20.5-51.1); % Monocytes 7.2 % (1.7-9.3); % Neutrophils 63.6 % (42.2-75.2); Absolute Eosinophils 0.2 10^3/uL (0-0.7); Absolute Lymphocytes 1.4 10^3/uL (1.2-3.4); Absolute Monocytes 0.4 10^3/uL (0.1-0.6); Absolute Neutrophils 3.8 10^3/uL (1.4-6.5); Hematocrit 39.5 % (39.0-52.0); Hemoglobin 13.1 g/dL (13.0-18.0); Mean Corp Hgb Conc. 33.2 g/dL (33.0-37.0); Mean Corpuscular Hgb 32.2 pg (27.0-31.0); Mean Corpuscular Volume 97.1 fL (80.0-94.0); Nucleated Red Blood Cells % 0 % (-); Red Blood Cell Count 4.07 10^6/uL (4.70-6.10); Red Cell Dist. Width 13.8 % (11.5-14.5)
[2024-10-24] VITALS (11 sets, daily range): BP systolic 116–139; BP diastolic 70–91; BMI 25.6
[2024-10-24] MEDS: PERIDEX 0.12% ORAL RINSE 15 ML PO (09:02)
[2024-10-24] MEDS: BACTROBAN NASAL 1 GRAM NASAL (09:03)
[2024-10-24] MEDS: NSS 500 IV (09:09)
--- NOTE | 2024-10-24 11:57 | OR.RPT ---
Operative Report
Operative Report
Date of Operation: 10/24/2024
Pre Op Diagnosis:
1. Presence of IVC filter
2. Recent iliocaval thrombosis with extensive bilateral lower extremity DVT status post successful thrombolysis.
Post Op Diagnosis:
1. Presence of IVC filter
2. Recent iliocaval thrombosis with extensive bilateral lower extremity DVT status post successful thrombolysis.
Procedure:
1. Inferior vena cava filter retrieval via right internal jugular vein approach
2. Ultrasound guided percutaneous access to the right internal jugular vein
Surgeon: Eliel Cristobal III, MD
Shank Boner: Shavonne Merida MD PGY1
Anesthesia: General
Complications: None
Estimated Blood Loss: Less than 20 cc
History and Indications for Procedure: 59-year-old male with history of IVC filter placement nearly 10 years ago. He recently had an episode of ileal caval thrombosis with extensive bilateral lower extremity DVT up to the level of the filter. He
was successfully thrombolysed. He was brought back to the operating room today for planned IVC filter retrieval
Procedure in Detail: George German was correctly identified and placed supine on the operating table. After adequate induction of anesthesia the right neck was positioned, prepped and draped in the usual sterile fashion. A time-out procedure was
performed, confirming the patient's identity as well as the nature and laterality of the procedure. The patient was placed into Trendelenberg position. Under ultrasound guidance the right internal jugular vein was accessed with a micropuncture
needle. We then upsized to a 5 [place] sheath over a [place] wire. The wire was navigated into the IVC below the level of the filter. A pigtail catheter was then placed over the wire and a diagnostic vena cavagram was performed. This demonstrated a
widely patent IVC with a small filling defects that appeared to be within the apex of the filter, and was seen on previous completion imaging at the time of thrombolysis and could not be cleared mechanically at that time. An amplatz wire was then
placed through the pigtail catheter. The pigtail and 5 Fr sheath were exchanged out for a 16 [place] 45 cm sheath. A long 11 Fr sheath was then telescoped through the 16 [place] sheath. The sheaths were each advanced under radiographic guidance over
the wire such that the radio-opaque sheath tip was just cephalad to the filter hook. We initially tried the [place] snare to retrieve the filter. The snare was advanced through the 11 [place] sheath under radiographic guidance. We were able to
capture the hook of the filter but could not fully collapse the filter into the 11 [place]/16 [place] system. The [place] snare broke while trying to capture the filter. The filter was partially collapsed into the 16 [place] sheath. I made another
attempt with an En-snare while the filter was partially collapsed but again could not completely collapse the filter legs into the sheath despite being able to snare the filter hook. The 11 [place] sheath began to accordion with additional forward
pressure. At this point I released the filter hook. The Amplatz wire was reinserted below the level of the filter. The 11 [place] sheath and the 16 [place] sheath were both removed over the wire. I exchanged out for a long 85 cm 18 [place] sheath.
The 18 Fr sheath was advanced under radiographic guidance over the wire such that the radio-opaque tip was just cephalad to the hook. The dilator was removed. The snare catheter was then inserted through the 18 [place] sheath. Once again I was able
to successfully capture the hook of the filter with the En-snare device. The 18 Fr sheath was then advanced over the filter and the filter legs fully collapsed into the sheath. The filter was removed and inspected on the back table. The filter
appeared to be grossly intact. A completion venogram of the inferior vena cava through the 18 [place] sheath demonstrated a patent inferior vena cava. A small filling defect was identified within the vena cava at the level previously seen before
retrieval and thought to be within the filter. No contrast extravasation was seen.
Satisfied with successful retrieval, the patient was placed into Trendelenberg position and the sheath was removed from the right neck. A 2-0 nylon suture was used to reapproximate the skin and subcutaneous tissue at the access site. Direct
pressure was then held on the puncture site for 10 minutes and hemostasis was achieved. A sterile dressing was applied. The patient was taken to the recovery room in stable condition.
Attestation: I was present and responsible for the entire procedure
Signed:
Eliel Cristobal III, MD
Vascular Surgery
[facility]
[2024-10-24] MEDS: NSS 1000 IV (13:12)
--- NOTE | 2024-10-24 13:22 | PTCARENOTE ---
per dr ramirez pt is allowed to take uber ride home. and pts friend mehnaz will check in on him .
--- NOTE | 2024-10-24 13:47 | PTCARENOTE ---
pt friend aysha will be picking pt up .
== END 2024-10-24 14:01 | disposition home or self-care (01) ==
LOC: CATH 08:18
PROVIDERS: ATTENDING PHYSICIAN Surgery Vascular Surgery; PRIMARYCARE PHYSICIAN Physician Assistant
DX: Z46.89 Encounter for fitting and adjustment of other specified devices (principal); Z86.718 Personal history of other venous thrombosis and embolism; Z79.01 Long term (current) use of anticoagulants
CPT/HCPCS: 37193; 88300; 36415; 80048; 85025; 85610; 85730; 86850; 86900; 86901; 93005; C1769; C1773; C1894; Q9967